=== PATIENT | male | born 1980 | race Caucasian/White ===

== ENCOUNTER 2018-07-24 16:09 | Outpatient (REF) | payer OTHER, SELFPAY ==
[2018-07-24 20:41] LABS: TSH (W/Ref FT4) 1.44 uIU/mL (0.358-3.74)
== END 2018-07-24 16:29 ==
LOC: NCHCN 16:09
PROVIDERS: PCP Nurse Practitioner Family; Visit Provider Nurse Practitioner Family
DX: E03.9 Hypothyroidism, unspecified (principal)
CPT/HCPCS: 84443

== ENCOUNTER 2019-05-14 13:41 | Outpatient (REF) | payer OTHER, SELFPAY ==
[2019-05-14 21:30] LABS: TSH (W/Ref FT4) 1.88 uIU/mL (0.36-3.74)
== END 2019-05-14 14:01 ==
LOC: NCHCN 13:41
PROVIDERS: PCP Nurse Practitioner Family; Visit Provider Specialist/Technologist Athletic Trainer
DX: E03.9 Hypothyroidism, unspecified (principal); N52.9 Male erectile dysfunction, unspecified
CPT/HCPCS: 84443

== ENCOUNTER 2020-03-21 16:05 | Outpatient (REF) | payer OTHER, SELFPAY ==
[2020-03-23 19:02] LABS: SARS-CoV-2 RNA Undetected (Undetected); SARS-CoV-2 Specimen Source Nasopharynx
== END 2020-03-21 16:25 ==
LOC: NCHCN 16:05
PROVIDERS: PCP Family Medicine; Visit Provider Family Medicine
DX: Z11.59 Encounter for screening for other viral diseases (principal)
CPT/HCPCS: U0003

== ENCOUNTER 2020-07-08 09:08 | Outpatient (REF) | payer OTHER, SELFPAY ==
[2020-07-08 19:55] LABS: Anion Gap 10.4 mmol/L (3-11); BUN 14 mg/dL (7-18); CO2 25.6 mmol/L (21.0-32.0); CREATININE 0.98 mg/dL (0.70-1.30); Calcium 9.2 mg/dL (8.5-10.1); Calculated LDL 142 mg/dL (<100); Chloride 104 mmol/L (98-107); Cholesterol 218 mg/dL (<200); Glucose 89 mg/dL (74-106); HDL Cholesterol 53 mg/dL (40-60); Potassium 4.3 mmol/L (3.5-5.1); Sodium 140 mmol/L (136-145); TSH 2.69 uIU/mL (0.36-3.74); Triglyceride 118 mg/dL (<150)
[2020-07-12 05:43] LABS: Patient Race White; SARS-CoV-2 RNA Undetected (Undetected); SARS-CoV-2 Specimen Source Nasal
== END 2020-07-08 09:28 ==
LOC: NCHCN 09:08
PROVIDERS: Nurse Practitioner Family; PCP Family Medicine; Visit Provider Physician Assistant
DX: Z00.00 Encounter for general adult medical examination without abnormal findings (principal); Z13.220 Encounter for screening for lipoid disorders; Z13.29 Encounter for screening for other suspected endocrine disorder; Z13.228 Encounter for screening for other metabolic disorders; Z11.59 Encounter for screening for other viral diseases
CPT/HCPCS: 80048; 80061; U0003; 84443

== ENCOUNTER 2021-07-17 19:05 | Outpatient (REF) | payer OTHER, SELFPAY ==
[2021-07-19 01:49] LABS: COVID-19 RT-PCR UVMMC Result Negative (Negative)
== END 2021-07-17 19:06 | disposition home or self-care (01) ==
LOC: LBN 19:05
PROVIDERS: PCP Nurse Practitioner Family; Visit Provider Nurse Practitioner Family
DX: Z20.822 Contact with and (suspected) exposure to COVID-19 (principal)
CPT/HCPCS: U0003

== ENCOUNTER 2022-08-31 15:28 | Outpatient (REF) | payer BC, OTHER, SELFPAY ==
--- NOTE | 2022-08-31 12:30 | SKI_PTH ---
PATIENT: Jarek Roldan LOC: [facility] U#:[id number] AGE/SX: 42/M ROOM: RE08/31/[address]: Umer Balbuena : 1980 BED: DIS: 08/31/2022 SPEC #: [id number] RECD: 09/01/22 12:47 STATUS: SHERRELL REQ #: [id number] SUSAN: 08/31/22 12:[address]: Umer Balbuena DEPT: Surgical Specimen RECD BY: Tatiana Wang ENTERED: 09/01/22 12:47 SP TYPE: NATALIE MARTINEZ DR: Aspen Mcelroy Tissues: 1 - SKIN BIOPSY(SHAVE/PUNCH) Procedures: SKIN LEVEL 4 Comments: [id number]
== END 2022-08-31 15:29 | disposition home or self-care (01) ==
LOC: NCHCN 15:28
PROVIDERS: PCP Nurse Practitioner Family; Visit Provider Physician Assistant
DX: L57.0 Actinic keratosis (principal)
CPT/HCPCS: 88305

== ENCOUNTER 2023-02-17 17:25 | Outpatient (REF) | payer BC, SELFPAY ==
[2023-02-17 21:14] LABS: TSH 0.68 uIU/mL (0.36-3.74)
== END 2023-02-17 17:26 | disposition home or self-care (01) ==
LOC: NCHCN 17:25
PROVIDERS: PCP Nurse Practitioner Family; Visit Provider Family Medicine
DX: Z00.00 Encounter for general adult medical examination without abnormal findings (principal); E03.9 Hypothyroidism, unspecified; E78.5 Hyperlipidemia, unspecified
CPT/HCPCS: 84443

== ENCOUNTER 2023-10-04 19:35 | Outpatient (REF) | payer SELFPAY ==
[2023-10-05 19:31] LABS: HBs Antibody, Quant 6.8 mIU/mL (See Note); Hepatitis B Surface Ab Negative (See Note)
[2023-10-06 09:38] LABS: Varicella IgG Antibody Positive (See Note)
[2023-10-06 09:40] LABS: Measles IgG Antibody Positive (See Note); Mumps Antibody IgG Negative (See Note); Rubella IgG Ab (UVM) Negative (See Note)
== END 2023-10-04 19:36 | disposition home or self-care (01) ==
LOC: LBN 19:35
PROVIDERS: PCP Nurse Practitioner Family; Visit Provider Nurse Practitioner Family
DX: Z02.89 Encounter for other administrative examinations; Z11.59 Encounter for screening for other viral diseases; Z01.84 Encounter for antibody response examination
CPT/HCPCS: 86706; 86787; 86480; 86735; 86762; 86765

== ENCOUNTER 2023-12-01 06:55 | Day surgery (SDC) | payer BC, SELFPAY ==
--- NOTE | 2023-11-30 18:18 | W.PM.DSUDISC ---
Date of service: 12/01/23 Time of Service: 08:30 Discharge Plan Disposition Patient Disposition: Home Condition: Good Discharge Details Reason For Visit: screening colonoscopy Attending Provider: Darrius Nieves Primary Care Provider: Tone Forbes Home Meds and New Rx's Prescriptions: Continued levothyroxine 150 mcg capsule 150 mcg PO DAILY sildenafil 50 mg tablet 50 mg PO DAILY PRN Rx Instructions: administer 30 minutes to 4 hours before activity Discharge Instructions Additional Instructions: Jarek, you did great today, and I hope the procedure was comfortable for you. Your prep was excellent, and I could see everything just fine. The colonoscopy was totally normal, and I do not see anything at all to worry about. As you know, based on your family history, recommend 5-year interval for your screening colonoscopies. If you have any questions at all, please do not hesitate to call me at any time. My number is [phone]. I really look forward to seeing around the hospital. 1. If tolerated, consume a soft, low fiber diet for 1-2 days. 2[address] Do not drive, drink alcohol, operate machinery, make critical decisions, or do activities that require coordination or balance for 24 hours. 3. Because air was put into your colon during the procedure, expelling air from your rectum (passing gas or farting) is normal. 4. You may not have a bowel movement for 1-3 days because of the colonoscopy prep. This is normal. 5. Go directly to the emergency room if you notice any of the following: Develop chills (warm to touch), or if you have a thermometer and your temperature is above 101 Difficulty breathing or difficultly swallowing Persistent vomiting Severe abdominal pain, other than gas cramps Severe chest pain Black, tarry stools Any bleeding ? exceeding one tablespoon 6. Call your physician if the site where your intravenous was started becomes red, swollen, painful, and warm to touch. 7. Your physician has reviewed your pre-procedure medications. Please continue to take those medications as previously ordered. You will be given specific information/education regarding any changes to your medications before leaving. Activity:: Activity as Tolerated Diet:: As Tolerated Discharge Orders Discharge Orders: Discharge Order (Routine); Ordered 11/30/23 Ordered By: Darrius Nieves DS: Diagnosis Discharge Diagnosis (1) Screen for colon cancer: Status: Acute Asessment and Plan: Normal screening colonoscopy; recommend follow-up in 5 years based on family history
--- NOTE | 2023-11-30 18:20 | COLE_ITS ---
Date of service: 12/01/23 Time of Service: 08:34 Colonoscopy Report Date of procedure: 12/01/23 Pre-op diagnosis general: screening colonoscopy Post-op diagnosis procedure note: other (Normal screening colonoscopy) Procedure: Colonoscopy Surgeon: Darrius Nieves Anesthesia Type: General:No Airway Estimated blood loss (mL): 0 Pathology: none sent Complications: None Disposition: same day Indications: Jarek is a 43 year old male with a first degree family history of colon cancer who needs a screening colonoscopy Prep: Miralax/Dulcolax Procedure Start Time: 08:11 Procedure End Time: 08:26 Retraction Time: 9 Findings: Normal-appearing colon Procedure Description: After the induction of monitored anesthetic care, and with the patient in left lateral decubitus position, I began by performing an external anorectal exam.? Perineum and skin were normal, as was the anal verge.? There was no evidence of external hemorrhoids.? Next, I performed a digital rectal exam.? I did not appreciate any abnormal findings.? Next, I advanced a colonoscope into the rectal vault.? I performed retroflexion.? This was normal.? Using insufflation, I then advanced the colonoscope beyond the rectal folds and into the sigmoid colon before advancing towards the cecum.? The quality of the prep was outstanding.? The scope was noted to be in the cecum by identification of the ileocecal valve and appendiceal orifice.? I then began withdrawing the c olonoscope using repeated irrigation as necessary for full evaluation of the colonic mucosa. ?Once the scope was withdrawn to the level of the rectum, great care was taken to examine portions of the rectal folds.? I did not see any signs of tumors, polyps, or anything worrisome finally, the scope was withdrawn and the patient was brought to the same-day surgery recovery unit as the anesthetic wore off. ?The findings and instructions were shared with the patient prior to discharge. [place] Bowel Prep [place] Bowel Prep Right Colon: 3 Left Colon: 3 Transverse Colon: 3 Total Score: 9
--- NOTE | 2023-11-30 19:43 | W.ANESPRE ---
General Info Date of Service Date Performed: 12/01/23 Height: 6 ft 4 in Weight: 94.347 kg Body Mass Index (BMI): 25.3 Surgical Procedure: Operation Date: 12/01/23 08:20 Proposed Procedure Side Surgeon p Amy Nieves MD Meds Allergies and Home Medications Allergies Allergy/AdvReac Type Severity Reaction Status Date / Time No Known Allergies Allergy Verified 12/01/23 07:11 Home Medication Medication Instructions Recorded levothyroxine 150 mcg capsule 150 mcg PO DAILY 10/19/23 sildenafil 50 mg tablet 50 mg PO DAILY PRN 10/19/23 Current Visit Medications: Current Medications Generic Name Dose Route Start Last Admin Trade Name Freq PRN Reason Stop Dose Admin Hyoscyamine Sulfate 0.125 mg 11/30/23 18:24 Hyoscyamine 0.125 Mg Sl/Oral/Chew SL 12/30/23 18:23 DIRECTED PRN Ringer's Solution 1,000 mls @ 80 mls/hr 12/01/23 06:00 IV 12/30/23 23:59 INFUSION SASHA IV Miscellaneous Supplies 1 each 12/01/23 06:00 Iv Access IV 12/30/23 23:59 DIRECTED SASHA Ondansetron HCl 4 mg 11/30/23 18:24 Ondansetron 4 Mg/2 Ml Vial IVP 12/30/23 18:23 Q4H PRN PRN Nausea / Vomiting Sodium Chloride 0 ml 12/01/23 06:00 Normal Saline Flush 10 Ml Syr IV 12/30/23 23:59 PRN PRN Sodium Chloride 0 ml 12/01/23 06:00 Normal Saline 10 Ml Vial IJ 12/30/23 23:59 DIRECTED PRN Sterile Water 0 ml 12/01/23 06:00 Water,Injection,Sterile 10 Ml Vial IJ 12/30/23 23:59 DIRECTED PRN PFSH Active Problems Active Problems: Problem Status Onset Code Screen for colon cancer Z12.11 Hypothyroidism E03.9 Medical History Medical History Follicular thyroid cancer Age 22 Erectile dysfunction Tinea versicolor Tobacco Smoking/Tobacco Use Status: Never Alcohol Alcohol Intake: current Alcohol intake frequency: a few times a week Substance Use Substance use: Never Substance use type: does not use Vital Signs and Lab Results Vital Signs Most Recent Vital Signs in EMR: Temp Pulse Resp BP Pulse Ox 36.3 C L 69 16 131/83 98 12/01/23 07:12 12/01/23 07:12 12/01/23 07:12 12/01/23 07:12 12/01/23 07:12 Lab Results Blood Type / Crossmatch: No Data to Display Complete Blood Count: No Data to Display Complete Metabolic Panel: No Data to Display Liver Function Panel: No Data to Display Coagulation Panel: No Data to Display Cardiac Panel: No Data to Display Arterial Blood Gas: No Data to Display Venous Blood Gas: No Data to Display Pancreas Panel: No Data to Display Thyroid Panel: No Data to Display Infectious Disease: Hepatitis B Surface Antigen Negative (Negative) 11/23/23 11:31 Blood Cultures: No Data to Display Toxicology Panel: No Data to Display Anesthesia Assessment and Plan Anesthesia History Personal History: No History of Anesthesia Complications Family History: No Family History of Anesthesia Complications Exercise Tolerance Exercise Tolerance: Metabolic Equivalents>4 Cardiac & Pulmonary Exam Cardiac Exam: Normal S1/S2 Heart Sounds Pulmonary Exam: Clear Bilateral Breath Sounds Implantable Cardiac Device Does patient have a Pacemaker or an ICD?: No Airway Exam Known Difficult Airway: No Mallampati Class: 2 Mouth Opening: Normal (> 3cm) Thyromental Distance: Greater than 3 cm Neck Range of Motion: Full ROM Neck Circumference: Normal Teeth Condition: Normal Dentition ASA Classification ASA Score: ASA 2 Emergency Case?: No NPO Status NPO Status: NPO Clears >2 hours, Solids >8 hours Anesthesia Plan Resuscitation Status: Full Code Anesthesia Technique: General Anesthesia Airway Planned: Natural Airway Monitors Used: Standard Monitors Preoperative Comments:: 43 yo male for colo. Sig PMHx: hypothyroid (on replacement), never smoker, occ EtOH.
[2023-12-01 07:12] VITALS: BP 131/83; PULSE 69; RESP 16; TEMP 36.3; O2SAT 98
[2023-12-01] MEDS: Lactated Ringers 1,000 ML 80 ML IV (07:26)
[2023-12-01 07:40] VITALS: BMI 25.3
[2023-12-01 08:33] VITALS: BP 111/70; PULSE 59; RESP 16; TEMP 36.4; O2SAT 97
--- NOTE | 2023-12-01 08:42 | W.ANESPOSTOP ---
Postoperative Evaluation Date, Time and Location Date Performed: 12/01/23 Time Performed: 08:42 Patient Location: Day Surgery Unit Vital Signs Most Recent Imported Vital Signs: Most Recent Vital Signs Temp Pulse Resp BP Pulse Ox 36.3 C L 69 16 131/83 98 12/01/23 07:12 12/01/23 07:12 12/01/23 07:12 12/01/23 07:12 12/01/23 07:12 Pain Score Most Recent Pain Score: Most Recent Pain Score Pain Level 0 12/01/23 07:12 Assessment Mental Status: Awake (Alert & Oriented to Patient Baseline) Airway and Respiratory Function: Patent airway with normal (patient baseline) respiratory exam Cardiovascular Function: Hemodynamically Stable Hydration Status: Adequately Hydrated Nausea & Vomiting: No Nausea or Vomiting Pain: Pt. Denies Any Pain Peripheral Nerve Block: Patient did not receive a nerve block
[2023-12-01 09:04] VITALS: BP 119/74; PULSE 57; RESP 16; TEMP 36.2; O2SAT 99
== END 2023-12-01 09:35 | disposition home or self-care (01) ==
PROVIDERS: PCP Family Medicine; Visit Provider Surgery
PROC: 0DJD8ZZ Inspection of Lower Intestinal Tract, Via Natural or Artificial Opening Endoscopic (ICD-10-PCS; CPT 45378; principal; 2023-12-01 08:15)
DX: Z12.11 Encounter for screening for malignant neoplasm of colon (principal); Z80.0 Family history of malignant neoplasm of digestive organs; E03.9 Hypothyroidism, unspecified
CPT/HCPCS: 45378; J2704

== ENCOUNTER 2024-04-17 21:45 | Outpatient (REF) | payer OTHER, SELFPAY ==
--- OUTSIDE RECORDS SUMMARY | 2024-04-17 21:50 | XMS_ITS | Encounter Summary ---
[place] [address] Care Team Providers Care Recycle Driver Name Role Phone None Primary Care Provider Unavailabl e Encounter Details Date Type Department Care Team (Late st Contact Info) Description 12/20/2003 Orders [place] [address] Michael Mao MD [facility] [place] [address] Social History Tobacco Use Types Packs/Day Years Used Date Smoking Tobacco: Never Assessed Sex and Gender Information Value Date Recorded Sex Assigned at Not on file Gender Identity Not on file Sexual Orientation Not on file documented as of this encounter Plan of Treatment Not on file documented as of this encounter Procedures Procedure Name Priority Date/Time Associated Diagnosis Comments SURGICAL PATHOLOGY REPORT Routine 12/20/2003 4:18 PM EDT documented in this encounter Results * Surgical Pathology Report (12/20/2003 4:18 PM EDT) Surgical Pathology Report [id number] ? Location: The signing pathologist has (i) examined the relevant preparation(s) for the specimen(s) and (ii) rendered or confirmed the diagnosis(es). . ?Pathology Surgical Pathology Final Report Clinical Information Specimen Submitted: A - Right lobe of thyroid Clinical History: Follicular thyroid ca. Gross Description Labeled/Fixative : ? Right lobe of thyroid, fresh. Qty/Size/Weight: ?Single, 4.6 x 2.8 x 1.8 cm, 8 g. Tissue Description: ?? Right thyroid lobectomy. ?? External Surface: ??Guerrero-red and smooth. ?? Lesion: ?None identified. ?? Parenchyma: ?Red-brown, beefy, and homogeneous. ?? Parathyroids: ?None found. Sections/Process ing: ??The capsule is inked black. ??The lobe is serially ?sectioned and entirely submitted as (1-10). ?? (T10) ?aje/SNS Microscopic Description Slides reviewed, microscopic description not recorded. Diagnosis Right lobe of thyroid 1 - Foreign body granulomata and scar 2 - Multinodular thyroid 3 - No evidence of residual malignancy. CR-0 12/24/03 VAM 12/24/03 Verified by: ? Manolo Luther MD ?Pathologist ?(Electronic Signature) The attending pathologist whose signature appears on this report has reviewed all diagnostic slides and has edited the gross and/or microscopic portion of the report in rendering the final pathologic diagnosis. LORENZO MURPHYJODIEKADEEM 12/20/2003 4:18 PM EDT Michael Mao MD PATHOLOGY/CYTOLOGY ORDERABLES LORENZO MORENO documented in this encounter Visit Diagnoses Not on filedocumented in this encounter Care Teams Recycle Driver Relationship Specialty Start Date End Date None None PCP - General 07/07/10 documented as of this encounter
--- OUTSIDE RECORDS SUMMARY | 2024-04-17 21:50 | XMS_ITS | Encounter Summary ---
Author Organization [facility] [place] [address] Care Team Providers Care Communications Supervisor Name Role Phone None Primary Care Provider Unavailabl e Encounter Details Date Type Department Care Team (Late st Contact Info) Description 02/28/2004 Orders Only [facility] [place] [address] Gavino Landers MD [facility] [place] [address] Social History Tobacco Use Types Packs/Day Years [...] Associated Diagnosis Comments SURGICAL PATHOLOGY REPORT Routine 02/28/2004 1:34 PM EDT documented in this encounter Results * Surgical Pathology Report (02/28/2004 1:34 PM EDT) Surgical Pathology Report [id number] ? Location: The signing pathologist has (i) examined the relevant preparation(s) for the specimen(s) and (ii) rendered or confirmed the diagnosis(es). . ?Pathology Surgical Pathology Final Report Clinical Information Specimen Submitted: A - Punch, 5 mm, skin; mid back. Clinical History: Irregular 4 mm pigmented papule. ??CI: Nevus, ? atypia. Gross Description Labeled/Fixative: ? Labeled with the patient's name and medical record ?number, formalin. Qty/Size/Weight: ?Single punch, 0.5 cm, with a brown, irregular, ?pigmented area on the surface. Sections/Processi ng: ??Trisected. ??(T1) ?aje/LJT Microscopic Description Slides reviewed, microscopic description not recorded. Diagnosis Lentiginous compound nevus with architectural disorder and moderate cytologic atypia, focally extending to a peripheral margin, punch biopsy, skin of mid back. CR-0 03/01/04 AJE 03/02/04 Verified by: ? Francheska Humphrey MD ?Dermatopatholog ist ?(Electronic Signature) The attending pathologist whose signature appears on this report has reviewed all diagnostic slides and has edited the gross and/or microscopic portion of the report in rendering the final pathologic diagnosis. LORENZO MORENO 02/28/2004 1:34 PM EDT Gavino Landers MD PATHOLOGY/CYTOLOGY O RDERABLES LORENZO MORENO documented in this encounter Visit Diagnoses Not on filedocumented in this encounter Care Teams Communications Supervisor Relationship Specialty Start Date End Date None None PCP - General 07/07/10 documented as of this encounter
--- OUTSIDE RECORDS SUMMARY | 2024-04-17 21:50 | XMS_ITS | Clinical Summary ---
Author Organization [facility] Address [facility] [place] [address] Care Team Providers Care Reliability Technician Name Role Phone None Primary Care Provider Unavailabl e Allergies Active Allergy Reactions Criticality Noted Date Comments Penicillins High CIS - Anaphylaxis Medications Medication Sig Dispensed Refills Start Date End Date Status multivitamin (THERAGRAN) tablet 04/24/2004 Active levothyroxine (LEVOXYL) 200 mcg tablet 200mcg, PO, QD 04/24/2004 Active Social History Tobacco Use Types Packs/Day Years Used Date Smoking Tobacco: Never Assessed Sex and Gender Information Value Date Recorded Sex Assigned at Not on file Gender Identity Not on file Sexual Orientation Not on file Plan of Treatment Health Maintenance Due Date Last Done Comments CT Colonography 1978 Colonoscopy 1978 Colorectal Cancer Screening 1978 FIT DNA 1978 FIT 1978 Sigmoidoscopy (10 year) with FIT yearly 1978 Sigmoidoscopy 1978 HIV screen 1996 Hepatitis C Screening 1996 Lipid Screening 1996 Hepatitis B vaccine (0-59 yrs) (1) 1997 Tdap adult 1997 Tetanus vaccine 1997 Covid-19 Vaccine ( - season) 2023 Influenza (Flu) vaccine (1 o f 1 - Influenza standard series) 04/15/2024 Care Teams Reliability Technician Relationship Specialty Start Date End Date None None PCP - General 07/07/10
--- OUTSIDE RECORDS SUMMARY | 2024-04-17 21:51 | XMS_ITS | Referral Summary ---
Author Organization [facility] Address [address] [place] [address] Care Team Providers Care Optical Glass Wet Inspector Name Role Phone Aspen Pizarro NP Primary Care Provider [phone] Social History Tobacco Use Types Packs/Day Years Used Date Smoking Tobacco: Never Assessed Interpersonal Safety Answer Date Record ed Physically Hurt Never 2020 Verbally Threaten Not on file 2020 Sex and Gender Information Value Date Recorded Sex Assigned at Not on file Gender Identity Not on file Sexual Orientation Not on file Plan of Treatment Not on file Care Teams Optical Glass Wet Inspector Relationship Specialty Start Date End Date Aspen Pizarro [employer] [address] [place] [address] PCP - General 08/15/21
--- OUTSIDE RECORDS SUMMARY | 2024-04-17 21:51 | XMS_ITS | Encounter Summary ---
Author Organization [facility] Address [address] [place] [address] Care Team Providers Care Flying Shear Operator Name Role Phone Aspen Pizarro NP Primary Care Provider [phone] Encounter Details Date Type Department Care Team (Late st Contact Info) Description 11/24/2023 Lab Requisition [facility] [address] [place] [address] Outr Resulting Lab, Provider Social History Tobacco Use Types Packs/Day Years [...] Procedure Name Priority Date/Time Associated Diagnosis Comments QUANTIFERON MITOGEN (PERFORMABLE) Today 11/23/2023 11:31 EDT QUANTIFERON TB2 (PERFORMABLE) Today 11/23/2023 11:31 EDT QUANTIFERON TB1 (PERFORMABLE) Today 11/23/2023 11:31 EDT QUANTIFERON NIL (PERFORMABLE) Today 11/23/2023 11:31 EDT QUANTIFERON INTERPRETATION (PERFORMABLE) Today 11/23/2023 11:31 EDT QUANTIFERON TB GOLD PLUS Routine 11/23/2023 11:31 EDT documented in this encounter Results * QUANTIFERON INTERPRETATION (PERFORMABLE) (11/23/2023 11:31 EDT) Quantiferon Interpretation Negative Negative 11/25/2023 11:19 EDT [facility] Comment:No interferon-gamma response to M. tuberculosis antigens was detected. ??Infection with M. tuberculosis is unlikely. A single negative result does not exclude infection with M. tuberculosis. ??In patients at high risk for M. tuberculosis infection, a second test should be considered. TB1 Ag minus Nil 0.00 IU/ml 11/25/19 11:19 EDT [facility] TB2 Ag minus Nil 0.00 IU/mL 11/25/19 11:19 EDT [facility] Blood VENOUS BLOOD / Unknown 11/23/2023 11:31 EDT 11/25/2023 11:12 EDT Provider Outr Resulting Lab IMMUNOLOGY A ND SEROLOGY ORDERABLES Performing Organization Address [facility] de Phone Number [facility] [address], [place] [id number] * QUANTIFERON MITOGEN (PERFORMABLE) (11/23/2023 11:31 EDT) Blood VENOUS BLOOD / Unknown 11/23/2023 11:31 EDT 11/24/2023 17:31 EDT Provider Outr Resulting Lab IMMUNOLOGY A ND SEROLOGY ORDERABLES Performing Organization Address [facility] de Phone Number [facility] [address] [place] [phone] * QUANTIFERON TB2 (PERFORMABLE) (11/23/2023 11:31 EDT) Blood VENOUS BLOOD / Unknown 11/23/2023 11:31 EDT 11/24/2023 17:31 EDT Provider Outr Resulting Lab IMMUNOLOGY A ND SEROLOGY ORDERABLES Performing Organization Address [facility] de Phone Number [facility] [address] [place] [phone] * QUANTIFERON TB1 (PERFORMABLE) (11/23/2023 11:31 EDT) Blood VENOUS BLOOD / Unknown 11/23/2023 11:31 EDT 11/24/2023 17:31 EDT Provider Outr Resulting Lab IMMUNOLOGY A ND SEROLOGY ORDERABLES Performing Organization Address [facility] Co de Phone Number [facility] [address], [place] [phone] * QUANTIFERON NIL (PERFORMABLE) (11/23/2023 11:31 EDT) Blood VENOUS BLOOD / Unknown 11/23/2023 11:31 EDT 11/24/2023 17:31 EDT Provider Outr Resulting Lab IMMUNOLOGY A ND SEROLOGY ORDERABLES Performing Organization Address [facility] Co de Phone Number [facility] [address] [place] [address] [phone] documented in this encounter Visit Diagnoses Not on filedocumented in this encounter Care Teams Flying Shear Operator Relationship Specialty Start Date End Date Aspen Pizarro, [address] [place] [address] PCP - General 08/15/21 documented as of this encounter
--- OUTSIDE RECORDS SUMMARY | 2024-04-17 21:51 | XMS_ITS | Encounter Summary ---
Author Organization [facility] Address [address] [place] [address] Care Team Providers Care Drill Rig Operator Helper Name Role Phone Aspen Pizarro NP Primary Care Provider [phone] Encounter Details Date Type Department Care Team (Late st Contact Info) Description 09/01/2022 Lab Requisition [facility] Pathology & Laboratory Medicine - [facility] [address] [place] [address] Umer Balbuena, [facility] [address] [place], [place] [id number] Encounter for other general examination Social History Tobacco Use Types Packs/Day Years [...] Priority Date/Time Associated Diagnosis Comments SURGICAL PATHOLOGY Today 08/31/2022 12 :30 EST Encounter for other general examination documented in this encounter Results * SURGICAL PATHOLOGY (08/31/2022 12:30 EST) Note to Patient The following pathology results have been interpreted by your pathologist and may be available to you before your health provider has had the opportunity to review them. Please allow time for your provider to receive these results and explore management options, if applicable. 09/03/2022 15:24 EST [facility] Final Diagnosis A. SKIN OF NOSE, RIGHT SIDE, SHAVE BIOPSY: - Actinic keratosis, inflamed. See comment. 09/03/2022 15:24 EST [facility] Diagnosis Comment No basal cell carcinoma is identified on either the original or additional, deeper sections. 09/03/2022 15:24 [facility] Attestation By the signature below, the attending physician certifies that they have 1) personally conducted a gross and/or microscopic examination of the described specimen(s), and/or personally interpreted the results of laboratory testing of the described specimen(s), and 2) personally rendered or confirmed the above diagnosis. 09/03/2022 15:24 [facility] at [address]24 Microscopic Description The stratum corneum is thickened by orthohyperkeratosis with foci of parakeratosis. The epidermis is focally thickened with elongate and bulbous rete ridges. The basal keratinocytes show a variable degree of atypia including nuclear enlargement, dispolarity, and hyperchromasia. The dermis is marked by solar elastosis, vascular ectasia and a lymphohistiocytic infiltrate. Additional deeper sections have similar features. 09/03/2022 15:24 [facility] Clinical History Keratotic papular lesion on right side of nose; possibly persistent AK versus BCC 09/03/2022 15:24 [facility] Gross Description A. Received in formalin labelled with proper patient identification (initials R, J) and right side of nose is a shave biopsy of irregular dia to dia-brown scaly skin (0.4 x 0.2 by less than 0.1 cm). The margin is inked blue and the specimen is submitted intact in A1. Barb Aden 09/02/2022 8:38 09/03/2022 15:24 [facility] Performing Lab [facility] 09/03/2022 15:24 [facility] Scanned Images 09/03/2022 15:24 [facility] Tissue TISSUE SPECIMEN FROM SKIN / Unknown 08/31/2022 12:30 EST 09/01/2022 17:52 EST Umer Balbuena [facility] PATHOLOGY ORDERAB LES [facility] [address] [place] [id number] documented in this encounter Visit Diagnoses Diagnosis Encounter for other general examination documented in this encounter Care Teams Drill Rig Operator Helper Relationship Specialty Start Date End Date Aspen Pizarro, ALOK [address] [place] [address] PCP - General 08/15/21 documented as of this encounter
--- OUTSIDE RECORDS SUMMARY | 2024-04-17 21:51 | XMS_ITS | Clinical Summary ---
Author Organization [facility] Address [address] [place] [address] Care Team Providers Care Blow Moulding Machine Operator Name Role Phone Aspen Pizarro NP Primary Care Provider [phone] Social History Tobacco Use Types Packs/Day Years Used Date Smoking Tobacco: Never Assessed Interpersonal Safety Answer Date Record ed Physically Hurt Never 2020 Verbally Threaten Not on file 2020 Sex and Gender Information Value Date Recorded Sex Assigned at Not on file Gender Identity Not on file Sexual Orientation Not on file Plan of Treatment Health Maintenance Due Date Last Done Comments Hepatitis C Screen 1978 Hepatitis B Vaccine (1 of 3 - 19+ 3-dose series) 08/07 COVID-19 Vaccine ( season) 2023 Care Teams Blow Moulding Machine Operator Relationship Specialty Start Date End Date Aspen Pizarro NP [address] [place] [address] PCP - General 08/15/21
--- OUTSIDE RECORDS SUMMARY | 2024-04-17 21:51 | XMS_ITS | Encounter Summary ---
Author Organization [facility] Address [address] [place] [address] Care Team Providers Care Manager Division Name Role Phone Aspen Pizarro NP Primary Care Provider [phone] Encounter Details Date Type Department Care Team (Late st Contact Info) Description 07/18/2021 Lab Requisition [facility] Pathology & Laboratory Medicine - [facility] [address] [place] [address] Outr Resulting Lab, Provider Social History Tobacco [...] Procedure Name Priority Date/Time Associated Diagnosis Comments ZZCOVID-19 TEST [facility] PCR Today 07/17/2021 18:30 EST COVID-19 TESTING Routine 07/17/2021 18:3 0 EST documented in this encounter Results * COVID-19 TEST [facility] PCR (07/17/2021 18:30 EST) Swab 07/17/2021 18:3 0 EST 07/18/2021 22:22 EST Provider Outr Resulting Lab MICROBIOLOGY - GENERAL ORDERABLES [facility] [address] [place] [address] * COVID-19 TESTING (07/17/2021 18:30 EST) COVID-19 rt-PCR Result Negative Negative 07/19/2021 1:44 EST [facility] Comment: This test has not been FDA cleared or approved. This test has been authorized by FDA under an EUA for use by authorized laboratories. This test has been authorized only for detection of nucleic acid from 2019-nCoV, not for any other viruses or pathogens. This test is only authorized for the duration of the declaration that circumstances exist justifying the authorization of emergency use of in vitro diagnostic tests for detection and/or diagnosis of 2019-nCoV under section 564(b)(1) of Act, 21 U.S.C ?? 360bbb-3(b) (1), unless the authorization is terminated or revoked sooner. Negative results do not preclude 2019-nCoV infection and should not be used as the sole basis for treatment or other patient management decisions. Negative results must be combined with clinical observations, patient history, and epidemiological information. Performed on the Individual Digitalher Fusion instrument Performing Lab [place] [facility] 07/19/2021 1:44 EST [facility] Swab 07/17/2021 18:3 0 EST 07/18/2021 22:22 EST Provider Outr Resulting Lab MICROBIOLOGY - GENERAL ORDERABLES Performing Organization Address City/State/[facility] Co de Phone Number [facility] [address] [place] [address] documented in this encounter Visit Diagnoses Not on filedocumented in this encounter Care Teams Manager Division Relationship Specialty Start Date End Date Aspen Pizarro NP [address] [place] [address] PCP - General 08/15/21 documented as of this encounter
--- OUTSIDE RECORDS SUMMARY | 2024-04-17 21:51 | XMS_ITS | Encounter Summary ---
Author Organization [facility] Address [address] [place] [address] Care Team Providers Care Car Hiker Name Role Phone Aspen Pizarro NP Primary Care Provider [phone] Encounter Details Date Type Department Care Team (Late st Contact Info) Description 10/05/2023 Lab Requisition [facility] Pathology & Laboratory Medicine - [facility] [address] [place] [address] Outr Resulting Lab, Provider Social [...] Procedure Name Priority Date/Time Associated Diagnosis Comments HOLD SST Today 10/04/2023 19:26 EST MEASLES IGG AB Today 10/04/2023 19:26 EST RUBELLA IGG ANTIBODY Today 10/04/2023 19:26 EST HEPATITIS B SURFACE ANTIBODY Today 10/04/2023 19:26 EST VARICELLA IGG ANTIBODY Today 10/04/2023 19:26 EST MUMPS ANTIBODY IGG Today 10/04/2023 19 :26 EST documented in this encounter Results * HOLD SST (10/04/2023 19:26 EST) Hold Hold 10/05/2023 18:31 EST [facility] Blood VENOUS BLOOD / Unknown 10/04/2023 19:26 EST 10/05/2023 17:15 EST Provider Outr Resulting Lab LAB INFO SER VICE AND SUPPORT & PHONE RESULT Performing Organization Address [facility] Co de Phone Number [facility] [address] [place] [address] * HEPATITIS B SURFACE ANTIBODY (10/04/2023 19:26 EST) Hep B Surface Ab, Quantitative 6.8 See Note mIU/mL 10/05/2023 19:25 EST [facility] Comment: Reference Range for Hep B Surface Ab, Quant: Positive: >= 10.0 mIU/mL Negative: ??< 10.0 mIU/mL Patient is presumed to not be immune to infection with Hepatitis B Virus. Hep B Surface Ab, Qualitative Negative See Note 10/05/2023 19:25 EST [facility] Comment: Reference Range for Hep B Surface Ab, Qual: Unvaccinated: ??Negative Vaccinated: ??Positive Blood VENOUS BLOOD / Unknown 10/04/2023 19:26 EST 10/05/2023 17:07 EST Provider Outr Resulting Lab CHEMISTRY & BLOOD GAS ORDERABLES Performing Organization Address [facility] Co de Phone Number [facility] [address] [place] [address] * MEASLES IGG AB (10/04/2023 19:26 EST) Measles IgG Ab Positive See Note 10/06/2023 9:35 EST [facility] Comment:Presence of detectab le measles virus IgG antibodies. Blood VENOUS BLOOD / Unknown 10/04/2023 19:26 EST 10/05/2023 17:07 EST Provider Outr Resulting Lab IMMUNOLOGY A ND SEROLOGY ORDERABLES Performing Organization Address [facility] Co de Phone Number [facility] [address] [place] [address] * VARICELLA IGG ANTIBODY (10/04/2023 19:26 EST) Varicella IgG Ab Positive See Note 10/06/2023 9:33 EST [facility] Comment:Presence of detectab le Varicella Zoster virus IgG antibodies. Blood VENOUS BLOOD / Unknown 10/04/2023 19:26 EST 10/05/2023 17:07 EST Provider Outr Resulting Lab IMMUNOLOGY A ND SEROLOGY ORDERABLES Performing Organization Address [facility] Co de Phone Number [facility] [address] [place] [address] * MUMPS ANTIBODY IGG (10/04/2023 19:26 EST) Mumps Antibody IgG Negative See Note 10/06/2023 9:36 EST [facility] Comment:Absence of detectabl e mumps virus IgG antibodies. A negative result generally indicates that the patient is susceptible to mumps. Blood VENOUS BLOOD / Unknown 10/04/2023 19:26 EST 10/05/2023 17:07 EST Provider Outr Resulting Lab IMMUNOLOGY A ND SEROLOGY ORDERABLES Performing Organization Address [facility] de Phone Number [facility] [address] [place] [address] * RUBELLA IGG ANTIBODY (10/04/2023 19:26 EST) Rubella IgG Ab Negative See Note 10/06/2023 9:36 EST [facility] Comment:Sample is considered negative for IgG antibodies to Rubella virus. A negative result presumes that immunity has not been acquired. If exposure to Rubella virus is suspected despite a negative finding, a second specimen should be collected and tested for Rubella IgG Ab one or two weeks later. Blood VENOUS BLOOD / Unknown 10/04/2023 19:26 EST 10/05/2023 17:07 EST Provider Outr Resulting Lab CHEMISTRY & BLOOD GAS ORDERABLES Performing Organization Address [facility] Co de Phone Number [facility] [address] [place] [address] documented in this encounter Visit Diagnoses Not on filedocumented in this encounter Care Teams Car Hiker Relationship Specialty Start Date End Date Aspen Pizarro, MAINSTREAMING FACILITATOR [address] [place] [address] PCP - General 08/15/21 documented as of this encounter
--- OUTSIDE RECORDS SUMMARY | 2024-04-17 21:51 | XMS_ITS | Encounter Summary ---
Author Organization [facility] Address [address] [place] [address] Care Team Providers Care Veneer Taping Machine Offbearer Name Role Phone Aspen Pizarro NP Primary Care Provider [phone] Encounter Details Date Type Department Care Team (Late st Contact Info) Description 08/25/2020 Lab Requisition [facility] Pathology & Laboratory Medicine - [facility] [address], [place] [id number] Outr Resulting Lab, Provider Social History Tobacco [...] Comments ZZCOVID-19 TEST [facility] PCR Today 08/25/2020 10:50 EST COVID-19 TESTING Routine 08/25/2020 10:5 0 EST documented in this encounter Results * COVID-19 TEST [facility] PCR (08/25/2020 10:50 EST) Swab ENTIRE NASOPHARYNX / Unknown 08/25/2020 10:50 EST 08/25/2020 20:47 EST Provider Outr Resulting Lab MICROBIOLOGY - GENERAL ORDERABLES [facility] [address] [place] [address] * COVID-19 TESTING (08/25/2020 10:50 EST) COVID-19 rt-PCR Result Negative Negative 08/25/2020 23:58 EST [facility] Comment: This test has not [...] history, and epidemiological information. Performed on the [employer] Fusion instrument Performing Lab [place] [facility] 08/25/2020 23:58 EST [facility] Swab 08/25/2020 10:5 0 EST 08/25/2020 20:47 EST Provider Outr Resulting Lab MICROBIOLOGY - GENERAL ORDERABLES Performing Organization Address City/State/[facility] Co de Phone Number [facility] [address] [place] [address] documented in this encounter Visit Diagnoses Not on filedocumented in this encounter Care Teams Veneer Taping Machine Offbearer Relationship Specialty Start Date End Date Aspen Pizarro NP [address] [place] [address] PCP - General 08/15/21 documented as of this encounter
--- OUTSIDE RECORDS SUMMARY | 2024-04-17 21:51 | XMS_ITS | Encounter Summary ---
[place] [address] Care Team Providers Care Tearoom Host Name Role Phone None Primary Care Provider Unavailabl e Encounter Details Date Type Department Care Team (Late st Contact Info) Description 10/04/2003 Orders Only [place] [address] Michael Mao MD [facility] [address] [place] [address] Social History Tobacco Use Types Packs/Day Years [...] Associated Diagnosis Comments SURGICAL PATHOLOGY REPORT Routine 10/04/2003 6:58 PM EST documented in this encounter Results * Surgical Pathology Report (10/04/2003 6:58 PM EST) Surgical Pathology Report [id number] ? Location: The signing pathologist has (i) examined the relevant preparation(s) for the specimen(s) and (ii) rendered or confirmed the diagnosis(es). . ?Pathology Surgical Pathology Final Report Clinical Information Specimen Submitted: A - Left thyroid lobe and isthmus, Neck Clinical History: Lt. thyroid nodule Gross Description Labeled/Fixative: ? Left thyroid lobe and isthmus, fresh. Qty/Size/Weight: ?4.0 x 2.7 x 1.9 cm. Tissue Description: ?? Subtotal thyroid. ?? External Surface: ??Dark red, multilobulated. ??Also received are three ?separate pieces of yellow, rubbery tissue measuring 2.5 x 2 x 1 cm in aggregate. ??The specimen is inked black and serially sectioned. ?? Lesion: ?Cystic nodule with white wall, well circumscribed. ?Cyst contains brown material. ?Location: ? Left upper lobe abutting the capsule. ?Size: ? 1.8 x 1.5 x 0.8 cm. ?? Parenchyma: ?Remaining parenchyma is dark red. ?? Parathyroids: ?None found. Sections/Processin g: ??(1-6) cystic nodule submitted entirely; (7-9) ?remaining parenchyma; (10-11) yellow, rubbery tissue. ?(T11) ??aje/SDD Microscopic Description Slides reviewed, microscopic description not recorded. Diagnosis Left thyroid and isthmus, partial thyroidectomy 1 - Encapsulated, angioinvasive follicular carcinoma, ?well-differentia joaquim, microfollicular type 2 - Tumor size = 1.8 cm, left lobe (See Comment) 3 - Vascular and capsular invasion identified. 4 - One (0/1) perithyroidal lymph node negative for malignancy. 5 - ??TNM STAGING (AJCC, 6th ed., 2003) pT1 pN0 pMX CR-0 10/07/03 VAM 10/07/03 Verified by: ? Manolo Luther MD ?Pathologist ?(Electronic Signature) The attending pathologist whose signature appears on this report has reviewed all diagnostic slides and has edited the gross and/or microscopic portion of the report in rendering the final pathologic diagnosis. Comment The nodule is received fragmented with the capsule largely intact. The largest fragment measures less than the overall dimension of the capsule which is 1.8 cm in greatest dimension. Despite the capsular rupture, the lesion appears to be excised. LORENZO MORENO 10/04/2003 6:58 PM EST Michael Mao MD PATHOLOGY/CYTOLOGY ORDERABLES LORENZO MORENO documented in this encounter Visit Diagnoses Not on filedocumented in this encounter Care Teams Tearoom Host Relationship Specialty Start Date End Date None None PCP - General 07/07/10 documented as of this encounter
--- OUTSIDE RECORDS SUMMARY | 2024-04-17 21:51 | XMS_ITS | Encounter Summary ---
Author Organization [facility] Address [address] [place] [address] Care Team Providers Care Audio Recording Engineer Name Role Phone Aspen Pizarro NP Primary Care Provider Encounter Details Date Type Department Care Team (Late st Contact Info) Description 08/05/2020 Lab Requisition [facility] Pathology & Laboratory Medicine - [facility] [address] [place] [address] Outr Resulting Lab, Provider Social [...] Procedure Name Priority Date/Time Associated Diagnosis Comments DO NOT ORDER STANDALONE - [facility] COVID TEST Today 08/05/2020 13:15 EST COVID-19 TESTING Routine 08/05/2020 13:1 5 EST documented in this encounter Results * DO NOT ORDER STANDALONE - BROAD COVID TEST (08/05/2020 13:15 EST) COVID-19 rt-PCR Result NEGATIVE Negative 08/06/2020 21:09 EST [facility] Comment: 2019-novel Coronavirus (2019-nCoV) not detected by the qRT-PCR assay. Consider testing for other respiratory viruses or re-collecting for 2019-nCoV testing. Note: Optimum timing for peak viral levels during infections caused by 2019-nCoV have not been determined. Collection of multiple specimens from the same patient may be necessary to detect the virus. Limitations Positive results are indicative of active infection with SARS-CoV-2 but do not rule out bacterial infection or co-infection with other viruses. The agent detected may not be the definite cause of disease. In addition, detection of viral RNA may not indicate the presence of infectious virus or that SARS-CoV-2 is the causative agent for clinical symptoms. Negative results do not preclude SARS-CoV-2 infection and should not be used as the sole basis for patient management decisions. Negative results must be combined with clinical observations, patient history, and epidemiological information. False negative results may also occur if amplification inhibitors are present in the specimen or if inadequate numbers of organisms are present in the specimen. Optimum specimen types and timing for peak viral levels during infections caused by SARS-CoV-2 have not been fully determined. Collection of multiple specimens (types and time points) from the same patient may be necessary to detect the virus. The test was validated for use with upper respiratory specimens obtained via nasopharyngeal or oropharyngeal swabs in VTM, UTM, M4, M5, M6, saline, and MTM media. The performance of this test has not been established for other specimens. Specimens collected using other FDA recommended Specimen Collection Materials listed in the FDA COVID-[employer] communication (November 08, 2019) are processed with the caveat that they were not all validated for use with this test and the result must be interpreted in this context. Furthermore, a false negative results may occur if a specimen is improperly collected, transported or handled. If the virus mutates in the RT-PCR target region, SARS-CoV-2 may not be detected or may be detected less predictably. Inhibitors or other types of interference may produce a false negative result. An interference study evaluating the effect of common cold medications was not performed. This test is not FDA-cleared but its performance characteristics were established by our CLIA-certified, CAP-accredited, high complexity laboratory in accordance with CLIA regulations, [employer] (CAP) guidelines (Nov 01, 2019), and FDA guidance (Oct 13, 2019). This test is only for use under the Food and Drug Administration's Emergency Use Authorization. Swab ENTIRE NASOPHARYNX / Unknown 08/05/2020 13:15 EST 08/05/2020 20:52 EST Provider Outr Resulting Lab MICROBIOLOGY - GENERAL ORDERABLES [facility] [place], [place] * COVID-19 TESTING (08/05/2020 13:15 EST) COVID-19 rt-PCR Result NEGATIVE Negative 2020 0:26 EST [facility] Comment: 2019-novel Coronavirus (2019-nCoV) not detected by the qRT-PCR assay. Consider testing for other respiratory viruses or re-collecting for 2019-nCoV testing. Note: Optimum timing for peak viral levels during infections caused by 2019-nCoV have not been determined. Collection of multiple specimens from the same patient may be necessary to detect the virus. Limitations Positive results are indicative of active infection with SARS-CoV-2 but do not rule out bacterial infection or co-infection with other viruses. The agent detected may not be the definite cause of disease. In addition, detection of viral RNA may not indicate the presence of infectious virus or that SARS-CoV-2 is the causative agent for clinical symptoms. Negative results do not preclude SARS-CoV-2 infection and should not be used as the sole basis for patient management decisions. Negative results must be combined with clinical observations, patient history, and epidemiological information. False negative results may also occur if amplification inhibitors are present in the specimen or if inadequate numbers of organisms are present in the specimen. Optimum specimen types and timing for peak viral levels during infections caused by SARS-CoV-2 have not been fully determined. Collection of multiple specimens (types and time points) from the same patient may be necessary to detect the virus. The test was validated for use with upper respiratory specimens obtained via nasopharyngeal or oropharyngeal swabs in VTM, UTM, M4, M5, M6, saline, and MTM media. The performance of this test has not been established for other specimens. Specimens collected using other FDA recommended Specimen Collection Materials listed in the FDA COVID-[employer] communication (November 08, 2019) are processed with the caveat that they were not all validated for use with this test and the result must be interpreted in this context. Furthermore, a false negative results may occur if a specimen is improperly collected, transported or handled. If the virus mutates in the RT-PCR target region, SARS-CoV-2 may not be detected or may be detected less predictably. Inhibitors or other types of interference may produce a false negative result. An interference study evaluating the effect of common cold medications was not performed. This test is not FDA-cleared but its performance characteristics were established by our CLIA-certified, CAP-accredited, high complexity laboratory in accordance with CLIA regulations, [employer] (CAP) guidelines (Nov 01, 2019), and FDA guidance (Oct 13, 2019). This test is only for use under the Food and Drug Administration's Emergency Use Authorization. Performing Lab [facility] 2020 0:26 EST [facility] Swab 08/05/2020 13:1 5 EST 08/05/2020 20:52 EST Provider Outr Resulting Lab MICROBIOLOGY - GENERAL ORDERABLES [facility] [address] [place] [address] [facility] [place], [place] documented in this encounter Visit Diagnoses Not on filedocumented in this encounter Care Teams Audio Recording Engineer Relationship Specialty Start Date End Date Aspen Pizarro, ALOK [address] [place] [address] PCP - General 08/15/21 documented as of this encounter
--- OUTSIDE RECORDS SUMMARY | 2024-04-17 21:51 | XMS_ITS | Encounter Summary ---
Author Organization [facility] Address [address] [place] [address] Care Team Providers Care Sheltered Workshop Executive Director Name Role Phone Aspen Pizarro NP Primary Care Provider [phone] Encounter Details Date Type Department Care Team (Late st Contact Info) Description 11/23/2023 Lab Requisition [facility] Pathology & Laboratory Medicine - [facility] [address], [place] [id number] Outr Resulting Lab, Provider Social History Tobacco [...] Procedure Name Priority Date/Time Associated Diagnosis Comments HEPATITIS B SURFACE ANTIGEN Routine 11/23/2023 11:31 EDT documented in this encounter Results * HEPATITIS B SURFACE ANTIGEN (11/23/2023 11:31 EDT) Hep B Surface Ag Negative Negative 11/24/2023 9:30 EDT [facility] Blood VENOUS BLOOD / Unknown 11/23/2023 11:31 EDT 11/23/2023 20:31 EDT Provider Outr Resulting Lab CHEMISTRY & BLOOD GAS ORDERABLES [facility] [address], [place] [id number] documented in this encounter Visit Diagnoses Not on filedocumented in this encounter Care Teams Sheltered Workshop Executive Director Relationship Specialty Start Date End Date Aspen Pizarro NP [address] [place] [address] PCP - General 08/15/21 documented as of this encounter
[2024-04-17 22:09] LABS: LDL CHOLESTEROL 110 mg/dL (<100); TSH 1.07 uIU/Ml (0.36-3.74)
== END 2024-04-17 21:46 | disposition home or self-care (01) ==
LOC: NCHCN 21:45
PROVIDERS: PCP Family Medicine; Visit Provider Family Medicine
DX: E03.9 Hypothyroidism, unspecified (principal); E78.5 Hyperlipidemia, unspecified
CPT/HCPCS: 83721; 84443

== ENCOUNTER 2025-05-08 19:52 | Outpatient (REF) | payer OTHER, SELFPAY ==
[2025-05-08 21:47] LABS: Hemoglobin A1C 5.3 % (<5.7)
[2025-05-08 21:58] LABS: TSH 0.39 uIU/mL (0.36-3.74)
== END 2025-05-08 19:53 | disposition home or self-care (01) ==
LOC: NCHCN 19:52
PROVIDERS: PCP Family Medicine; Visit Provider Family Medicine
DX: Z00.00 Encounter for general adult medical examination without abnormal findings (principal); E03.9 Hypothyroidism, unspecified
CPT/HCPCS: 83036; 84443